=== PATIENT | female | born 1945 | race Caucasian/White ===

== ENCOUNTER 2016-07-16 13:28 | Emergency (ER) | payer OTHER, MEDICARE ==
[~2016-07-16] VITALS: Ht 152.4 cm; Wt 63.8 kg
[~2016-07-16 13:28] MED LIST: ALEVE220 M1 PO; ANASTROZOLE1 MG PO; ATIVAN0.5 MG PO; AVELOX400 MG PO; AZO95 MG PO; BACTRIM,SEPT1 TABLET PO; CALCIUM 500 MG1 EACH PO; CARBIDOPA-LEVO1 EAC3 PO; CELEXA40 MG PO; CLONAZEPAM0.5 MG PO; CLONAZEPAM1 MG PO; Combivent IH; DELTASONE20 MG PO; DEPAKOTE ER500 MG PO; DEPAKOTE PO; DEPAKOTE125 MG PO; DEPAKOTE250 MG PO; DEPAKOTE500 MG PO; DIVALPROEX SOD500 M1 PO; DUONEB 2.5-0.5 M3 ML AEROSOL; ESTRACE0.5 MG PO; ESTRADIOL1 MG PO; FIBER-TABS625 MG PO; FIORICET WI1 CAPSULE PO; FIORICET,ESG1 TABLET PO; FLEXERIL5 MG PO; Flexeril PO; GABAPENTIN300 MG PO; GABAPENTIN600 MG PO; GAVISCON ES CH1 EAC1; GAVISCON ES CH1 EAC1 PO; GAVISCON,GEN1 TABLE1 PO; GYNODIOL1 MG PO; Habitrol,Nicoderm CQ TD; INDERAL20 MG PO; KLONOPIN0.5 M1 PO; Keflex PO; LACTINEX,FLO1 PACKET PO; LAMICTAL150 MG PO; LAMICTAL5 MG PO; LEVOFLOXACIN250 MG PO; LEVOFLOXACIN750 MG PO; LIDODERM 5% P1 PATCH TD; MEDROL DOSEPAK4 MG PO; MELATIN3 MG PO; MELATONIN3 MG PO; MIRAPEX0.25 MG PO; MOBIC15 MG PO; Maxipime IV; Mobic PO; NEURONTIN100 MG PO; NEURONTIN300 MG PO; NEURONTIN600 MG PO; NICOTINE PATCH1 EAC2 TD; OXCARBAZEPINE150 MG; PANTOPRAZOLE SO40 MG PO; PRAMIPEXOLE D0.25 MG PO; PREDNISONE10 MG PO; PREDNISONE20 MG PO; PREDNISONE50 MG PO; PREVACID15 MG PO; PRILOSEC20 MG PO; PROAIR HFA8.5 GM IH; PROTONIX40 MG PO; Prevacid PO; PriLOSEC PO; REQUIP1 MG PO; RESTFUL LEGS SL; ROXICODONE5 MG PO; SEROQUEL100 MG PO; SEROQUEL50 MG PO; SPIRIVA RESPIMAT4 GM IH; SPIRIVA1 INHALATI IH; STOOL SOFTENER100 MG PO; SYMBICORT60 INHALAT IH; TIZANIDINE HCL2 M1 PO; TIZANIDINE HCL2 MG PO; TIZANIDINE HCL4 M1 PO; TOPAMAX25 MG PO; TRAMADOL HCL50 MG PO; TYLENOL EXTRA500 MG PO; Trileptal PO; Tylenol Regular Stre PO; ULTRAM50 MG PO; UNABLEOBTAIN; VALIUM2 MG PO; VALIUM5 MG PO; VALTREX1000 MG PO; VANCOMYCIN100 MG/M2 IV; VENTOLIN HFA18 GM IH; XANAX XR1 MG PO; XANAX0.125 MG PO; Xanax PO; ZANAFLEX2 MG PO; ZOFRAN ODT4 MG PO; celeXA PO
[2016-07-16 14:53] LABS: HEMATOCRIT 38.9 % (36.0-46.0); MCH 31.2 PG (29.0-34.0); MCHC 32.9 G/DL (30.0-36.0); MCV 94.9 FL (83-99); MEAN PLAT.VOLUME 10.1 uM^3 (9.5-12.4); PLATELET COUNT 230 K/uL (156-360); RBC DIS.WIDTH-CV 14.4 % (11.8-14.6); WHITE BLOOD COUNT 9.6 K/uL (4.1-10.2)
[2016-07-16 15:03] LABS: CHLORIDE 102 mEq/L (99-109); POTASSIUM 4.6 mEq/L (3.7-5.4); SODIUM 141 mEq/L (136-147)
[2016-07-16 15:05] LABS: GLUCOSE 136 mg/dL (70-99)
[2016-07-16 15:07] LABS: ANION GAP 13 MEQ/L (2-14); TOTAL BILIRUBIN 0.3 mg/dL (0.0-1.0)
[2016-07-16 15:09] LABS: ALKALINE PHOSPHATASE 72 IU/L (3-129); GFR ESTIMATE (CALCULATED) > 59 mL/min/
[2016-07-16 15:10] LABS: UREA NITROGEN (BUN) 17 mg/dL (9-23)
[2016-07-16 15:56] LABS: ADD MIUA? YES; BILIRUBIN NEGATIVE; BLOOD NEGATIVE; COLOR YELLOW ((YELLOW)); GLUCOSE (STRIP) NEGATIVE; KETONES 5; LEUKOCYTES NEGATIVE; NITRITE NEGATIVE; PROTEIN (STRIP) 30; SPECIFIC GRAVITY 1.024 (1.000-1.030); UROBILINOGEN 0.2 MG/DL (0.2-1.0)
[2016-07-16 16:07] LABS: BACTERIA RARE /HPF; EPITHELIAL CELLS 1+ /HPF; MUCUS TRACE /LPF; RED BLOOD CELLS 0-5 /HPF (0-5); UCUL ADDED? NO; WHITE BLOOD CELLS 0-5 /HPF (0-5)
[2016-07-16 19:18] VITALS: BP 100/80
== END 2016-07-16 19:36 | disposition home or self-care (01) ==
LOC: EME → EDBD 13:28 → EME 13:28
DX: R10.30 Lower abdominal pain, unspecified (principal); G43.909 Migraine, unspecified, not intractable, without status migrainosus; E86.0 Dehydration; J44.1 Chronic obstructive pulmonary disease with (acute) exacerbation; R00.0 Tachycardia, unspecified; E11.9 Type 2 diabetes mellitus without complications; K21.9 Gastro-esophageal reflux disease without esophagitis; Z87.442 Personal history of urinary calculi; Z87.891 Personal history of nicotine dependence
CPT/HCPCS: 80053; 81003; 85027; 93005; 94640; 99281; 99285; J7030

== ENCOUNTER 2016-09-12 02:02 | Emergency (ER) | payer OTHER, MEDICARE ==
[~2016-09-12] VITALS: Ht 172.7 cm; Wt 51.8 kg
[2016-09-12 04:40] VITALS: BP 110/65
== END 2016-09-12 04:53 | disposition home or self-care (01) ==
LOC: EME → EDBD 02:02 → EME 04:53
DX: S06.0X0A Concussion without loss of consciousness, initial encounter (principal); M25.552 Pain in left hip; M25.562 Pain in left knee; W18.30XA Fall on same level, unspecified, initial encounter
CPT/HCPCS: 70450; 71020; 73502; 73564; 99281; 99284

== ENCOUNTER 2017-10-28 01:03 | Emergency (ER) | payer OTHER, MEDICARE ==
[~2017-10-28] VITALS: Ht 152.4 cm; Wt 57.9 kg
[2017-10-28 01:42] LABS: HEMATOCRIT 36.1 % (36.0-46.0); HEMOGLOBIN 11.8 G/DL (11.9-15.5); MCH 31.6 PG (29.0-34.0); MCHC 32.7 G/DL (30.0-36.0); MCV 96.8 FL (83-99); PLATELET COUNT 189 K/uL (156-360); RBC DIS.WIDTH-CV 14.6 % (11.8-14.6); RBC DIS.WIDTH-SD 51.8 % (39-53); RED BLOOD COUNT 3.73 M/uL (3.80-5.20); WHITE BLOOD COUNT 6.4 K/uL (4.1-10.2)
[2017-10-28 01:54] LABS: CHLORIDE 104 mEq/L (99-109); POTASSIUM 3.7 mEq/L (3.7-5.4); SODIUM 141 mEq/L (136-147)
[2017-10-28 01:56] LABS: GLUCOSE 132 mg/dL (70-99)
[2017-10-28 02:00] LABS: CREATININE 0.5 mg/dL (0.6-1.3); GFR ESTIMATE (CALCULATED) > 59 mL/min/
[2017-10-28 02:01] LABS: UREA NITROGEN (BUN) 18 mg/dL (9-23)
[2017-10-28 02:10] LABS: TROP-I INTERPRETATION NEGATIVE; TROPONIN-I < 0.01 ng/mL (0.0-0.30)
[2017-10-28] MEDS ORDERED: ULTRAM50 MG PO (04:02)
[2017-10-28] MEDS ORDERED: LIDODERM 5% P1 PATCH TD (04:02)
[2017-10-28 11:10] VITALS: BP 143/86
== END 2017-10-28 11:21 | disposition home or self-care (01) ==
LOC: EME → EDBD 01:03 → EME 01:03
PROVIDERS: Emergency Medicine
DX: S20.211A Contusion of right front wall of thorax, initial encounter (principal); W18.30XA Fall on same level, unspecified, initial encounter; Y92.000 Kitchen of unspecified non-institutional (private) residence as the place of occurrence of the external cause; Z99.81 Dependence on supplemental oxygen; Z98.1 Arthrodesis status; Z90.11 Acquired absence of right breast and nipple; Z86.14 Personal history of Methicillin resistant Staphylococcus aureus infection; F17.200 Nicotine dependence, unspecified, uncomplicated
CPT/HCPCS: 71100; 71250; 80048; 84484; 85027; 93005; 99281; 99285